=== PATIENT | male | born 1965 ===

== ENCOUNTER 2020-08-15 10:36 | Emergency (ER) | payer SELFPAY ==
[~2020-08-15] VITALS: Ht 180.3 cm; Wt 98.7 kg
[2020-08-15 10:43] VITALS: BP 145/91
== END 2020-08-15 10:55 | disposition left against medical advice (07) ==
LOC: ED 10:50
DX: R07.9 Chest pain, unspecified (principal); Z53.21 Procedure and treatment not carried out due to patient leaving prior to being seen by health care provider
CPT/HCPCS: 93005